=== PATIENT | female | born 1965 | race Caucasian/White ===

== ENCOUNTER 2024-08-29 15:01 | Inpatient (IN) | payer MEDICARE ==
[~2024-08-29] VITALS: Ht 172.7 cm; Wt 59.6 kg
--- NOTE | 2024-08-29 15:10 | NUR ---
Medication/allergy paperwork fiven to Yelena Varghese for reconcilliation.
[2024-08-29] MEDS ORDERED: PEPCID 20MG TAB20 MG PO (15:22)
[2024-08-29] MEDS ORDERED: DECADRON 4MG TAB4 MG PO (15:25)
[2024-08-29] MEDS ORDERED: PREDNISONE1 MG PO (15:26)
[2024-08-29] MEDS ORDERED: SYMBICORT1 AE3 IH (15:27)
[2024-08-29] MEDS ORDERED: SPIRIVA RE2.5 MCG/Ac IH (15:28)
[2024-08-29] MEDS ORDERED: NOVAPLUS L40 MG/0.4 SQ (15:29)
[2024-08-29] MEDS ORDERED: IPRATROPIUM BROM3 M1 IH ×2 (15:30→15:31)
--- NOTE | 2024-08-29 15:30 | NUR ---
PTS DUAGHTER AND DAUGHERS SIGNIFICANT OTHER AT BEDSIDE. ANITHA, JIG OPERATOR AT NOTIFIED. SW NOTIFIED ABOUT FAMILY WANTING INFO ON ADVANCED DIRECTIVES.
[2024-08-29] MEDS ORDERED: ONDANSENTRON 4MG/2ML IV (15:31)
--- NOTE | 2024-08-29 16:27 | NUR ---
Pt discussed DNR status with nurse Peg wishing to sign paperwork for DNR. workers' compensation claims supervisor Josefa, facilitates signing ove DNR form with with nurse witnessing after patient was able to teach back explaination of DNR. Dr Hernandez signs and is placed on chart
--- NOTE | 2024-08-29 16:33 | NUR ---
confirmed kitchen staff aware of patient, and to provide dinner.
--- NOTE | 2024-08-29 18:58 | NUR ---
report to FABIOLA Cheatham
[2024-08-29] MEDS ORDERED: Albuterol/Ipratropium 3 MG-0.5 MG/3 ML Neb Soln IH SCH (19:15)
[2024-08-29] MEDS ORDERED: Albuterol/Ipratropium 3 MG-0.5 MG/3 ML Neb Soln IH PRN (19:15)
[2024-08-29] MEDS ORDERED: Bisacodyl 5 MG TAB PO PRN (19:15)
[2024-08-29] MEDS ORDERED: Docusate Sodium 100 MG CAP PO PRN (19:15)
[2024-08-29] MEDS ORDERED: Polyethylene Glycol 3350 Powder 17 GM PACKET PO PRN (19:15)
[2024-08-29] MEDS ORDERED: Ibuprofen 200 MG TAB PO PRN (19:15)
[2024-08-29] MEDS ORDERED: Acetaminophen 325 MG TAB PO PRN (19:15)
[2024-08-29] MEDS ORDERED: STIOLTO RESPIMAT4 GM IH (19:18)
[2024-08-29 20:05] VITALS: BP 107/69
[2024-08-29] MEDS ORDERED: Budesonide Neb Soln 0.5 MG/2 ML AMP IH SCH (21:00)
[2024-08-30 06:06] LABS: HEMATOCRIT 39.7 % (37.0-47.0); HEMOGLOBIN 12.3 g/dL (12.5-16.0); LYMPH# 2.03 K/mm3 (1.50-4.00); MEAN CELL VOLUME 97 fl (78-100); MEAN CORPUSCULAR HEMOGLOBIN 30 pg (27-31); MEAN CORPUSCULAR HGB CONC 31 g/dL (33-37); MEAN PLATELET VOLUME 8.5 fl (7.4-10.4); MONO # 0.84 K/mm3 (0.20-0.80); NEU # 4.19 K/mm3 (1.40-6.50); PLATELET COUNT 235 K/mm3 (130-400); RED CELL DISTRIBUTION WIDTH 12.4 % (11.5-14.5); WHITE BLOOD COUNT 7.1 K/mm3 (4.8-10.8)
[2024-08-30 06:11] LABS: ALBUMIN 3.4 g/dL (3.4-4.8)
[2024-08-30 06:13] LABS: CALCIUM 8.8 mg/dL (8.3-10.5)
[2024-08-30 06:14] LABS: TOTAL PROTEIN 6.3 g/dL (6.2-8.1)
[2024-08-30 06:16] LABS: TOTAL BILIRUBIN 0.3 mg/dL (0.2-1.2)
[2024-08-30 07:34] VITALS: BP 91/65
[2024-08-30] MEDS ORDERED: predniSONE 1 MG TAB PO SCH (09:00)
[2024-08-30] MEDS ORDERED: Famotidine 20 MG TAB PO SCH (09:00)
[2024-08-30] MEDS ORDERED: Tiotropium 2.5 MCG Respimat MDI IH SCH (09:00)
[2024-08-30] MEDS ORDERED: predniSONE 20 MG TAB PO SCH (09:30)
[2024-08-30] MEDS ORDERED: Albuterol/Ipratropium 3 MG-0.5 MG/3 ML Neb Soln IH SCH (11:00)
--- NOTE | 2024-08-30 11:55 | NUR ---
[id number]- report recieved from Chaparrita HICKS 0715 pt resting in bed at this time with oxygen at 2L NC. pt does not have any complaints or pain at this time. assessment completed.
--- NOTE | 2024-08-30 11:57 | NUR ---
Pt daughter, Ruht called about bringing clothes. phone number [phone] left message
--- NOTE | 2024-08-30 16:20 | NUR ---
Pt has waffle chair seat applied to chair. bottom looked a little reddened while staff gave shower.
--- NOTE | 2024-08-30 17:39 | NUR ---
pt ambulated to bathroom without difficulty. pt reports that cushion under bottom of recliner feels better.
[2024-08-30 19:00] VITALS: BP 112/67
[2024-08-31 07:03] VITALS: BP 97/60
--- NOTE | 2024-08-31 09:30 | NUR ---
PT ALERT AND ORIETNED X4, PT RESTING IN CHAIR FOR ASSESSMENT AND MEDICATIONS. PT DENIES ANY PAIN AT THIS TIME. PT ASSESSED AND MEDICATIONS GIVEN WITHOUT COMPLICATION, PT COMPLETED BREATHING TREATMENT. NO FURTHER NEEDS EXPRESSED AT THSI TIME, CALL LIGHT IN REACH AND CHAIR ALARM ON
--- NOTE | 2024-08-31 16:48 | NUR ---
Pt up to BR w/ CGA w/ steady gait and 02 at 5 L/NC. Voids and returns to chair for dinner. Tolerates activity without complaints. 02 down to 2 L/NC.
[2024-08-31 19:00] VITALS: BP 98/66
--- NOTE | 2024-08-31 19:13 | NUR ---
REPORT TO RACHEL HICKS
--- NOTE | 2024-08-31 19:30 | NUR ---
Report received and care assumed. Pt resting in chair with no needs or concerns at this time. Oxygen in place at 2 L/min via nasal canula.
--- NOTE | 2024-08-31 23:56 | NUR ---
Pt resting in bed with oxygen in place at 2L/min via nasal canula. Call light in reach, bed alarm on.
--- NOTE | 2024-09-01 00:29 | NUR ---
Report given to Loyd Mcpherson RN and care transferred.
--- NOTE | 2024-09-01 06:41 | NUR ---
Patient up watching television at 0030. Denies pain and O2 at 2L via NC. RR at 16 when sleeping at hourly checks. Breathing regular and unlabored. Patient refused breathing treatment scheduled for this morning. She did not want to be woke for breathing treatments.
[2024-09-01 07:00] VITALS: BP 101/70
--- NOTE | 2024-09-01 07:03 | NUR ---
Report givent to FABIOLA Mcfadden.
--- NOTE | 2024-09-01 07:08 | NUR ---
REPORT FROM FRANCISCA HICKS
--- NOTE | 2024-09-01 13:30 | NUR ---
PT ALERT AND ORIETNED X4, PT RESTING IN CHAIR, DENIES ANY NEEDS AT THIS TIME. PT REPORTS SLEEPING WELL. MEDICATIONS GIVEN AND PT ASSESSED WITHOUT COMPLICATION. PT NOW RESTING IN CHAIR WITH CALL LIGHT IN REACH AND CHAIR ALARM ON
--- NOTE | 2024-09-01 15:54 | NUR ---
PT DENIES ANY NEEDS AT THIS TIME, RESTING IN BED WITH CALL LIGHT IN REACH
--- NOTE | 2024-09-01 19:00 | NUR ---
REPORT TO MAXX HICKS
[2024-09-01 19:30] VITALS: BP 97/52
[2024-09-02 08:24] VITALS: BP 105/72
--- NOTE | 2024-09-02 11:19 | NUR ---
PT ALERT AND ORIENTED X4, PT DENIES ANY NEEDS, PT ASSESSED AND MEDICATIONS GIVEN. PT REPORTS SLEEPING WELL. PT REQUESTS MEDICATION TO ASSIST IN BOWEL MOVEMENT SHE REPORTS SHE HAS BEEN STRAINING TO DO SO. PT NOW RESTING IN CHAIR WITH CALL LIGHT IN REACH AND CHAIR ALARM ON
--- NOTE | 2024-09-02 18:15 | NUR ---
PT RESTING IN CHAIR, NO NEEDS EXPRESSED
[2024-09-02 19:00] VITALS: BP 116/72
--- NOTE | 2024-09-02 19:14 | NUR ---
REPORT MAXX HICKS
[2024-09-03 07:00] VITALS: BP 117/84
--- NOTE | 2024-09-03 09:40 | NUR ---
PT ALERT AND ORIETNED, PT DENIES PAIN AT THIS TIME, PT ASSESSED AND MEDICATIONS GIVEN WITHOUT COMPLICATION. PT DENIES ANYU FURTHER NEEDS AT THIS TIME. PT NOW RESTING IN BED WITH CALL LIGHT IN REACH.
--- NOTE | 2024-09-03 12:00 | NUR ---
OT HENNY REPORTING THAT PT STATES SHE NEEDS AN ANXIETY MEDICATION PRIOR TO COMPLETING THERAPY, NEW MEDICATION ORDERED
[2024-09-03] MEDS ORDERED: hydrOXYzine HCl 10 MG TAB PO PRN (12:15)
--- NOTE | 2024-09-03 15:08 | NUR ---
SW met with patient as new admission to [facility] post acute stay at [facility] for pna. Patient reports that she lives at home with her daughter Ruth and grandchildren along with her son Ranjith Kirby" in [place], [place]. Patient reports that she is normally able to complete all of her ADL's and IADL's at home, but if she needed help, Ruth helps her. She denies any use of DME equipment at home to help ambulate, but does use home oxgen which is supplied through the hospital in [place]. She is unsure of who her PCP is and states that she normally just see's who is on that day. Her preferred phamracy is [facility] in [place]. She denies current home health use, but does state that she has utilized [facility] in the past. SW addressed patients barriers to working with therapy which she contributes to feeling "jittery" and "anxious". SW educated the patient on the importance of working with therapy and how refusing tx due to the above could impact her qualifying for SW. SW encouraged the patient to communicate with the therapy team if she wasn't feeling well, but strongly encourages the patient to participate. Patient verbalized her understanding.
--- NOTE | 2024-09-03 18:50 | NUR ---
Received report from Nick Valencia RN
[2024-09-03 19:41] VITALS: BP 112/75
--- NOTE | 2024-09-03 20:25 | NUR ---
Pt sitting in recliner watching TV. Pt denies pain when asked. Pt is aggreable to preform her nebulizer. No abnormal finding when preforming nursing assessment. After Pulmicort neb is completed pt request to go to bed. HS care preformed and pt then asssisted to bed. Bed alarms on for safety and call light in reach of pt.
[2024-09-04 07:00] VITALS: BP 114/76
--- NOTE | 2024-09-04 08:00 | NUR ---
PT ALERT AND ORIETNED X4, PT ASSISTED TO CHAIR FOR ASSESSMENT AND MEDICATIONS. PT EATING VERY LITTLE, PROVIDER ANITHA NOTIFIED OF DECREASED PT INTAKE. NO NEW ORDERS AT THIS TIME, PT RODRÍGUEZ IN PLACE DRAINING YELLOW CLEAR URINE. PT DENIES PAIN. MEDICATIONS GIVEN WHOLE IN APPLESAUCE. PT NOW RESTING IN CHAIR WITH CALL LIGHT IN REACH AND CHAIR ALARM ON. PT DENIES FURTHER NEEDS AT THIS TIME
--- NOTE | 2024-09-04 09:00 | NUR ---
PT ALERT AND ORIENTED X4, PT GIVEN MEDICATIONS BY SUN HICKS. PT TOOK ANXIETY MEDICATION TO ALLEVIATE ANXIETY IN RELATION TO COMPLETING THERAPY. PT ASSESSED, PT DENIES PAIN, NO FURTHER NEEDS EXPRESSED. PT RESTING IN CHAIR WITH CALL LIGHT IN REACH AND BED ALARM ON.
--- NOTE | 2024-09-04 12:49 | NUR ---
PT REPORTS SHE "DOES NOIT LIKE THAT PILL" REGARDS TO ANXIETY MEDICATION, REPORTING"I AM TRYING HARD TO STAY AWAKE" PROVIDER JENNIFER NOTIFIED
--- NOTE | 2024-09-04 18:57 | NUR ---
REPORT TO BOUCHRA HICKS
[2024-09-04 19:00] VITALS: BP 103/71
--- NOTE | 2024-09-04 19:50 | NUR ---
Pt sitting in recliner when nurse eneters room. pt denies any pain when asked. No abnormal findings with the nursing assessment. No needs expressed while nurse in room, encouraged pt to call if any needs arise. Call light in reach of pt.
--- NOTE | 2024-09-05 06:54 | NUR ---
Report given to Nick Valencia RN.
[2024-09-05 07:00] VITALS: BP 105/71
[2024-09-05 08:59] LABS: EOS # 0.03 K/mm3 (0.04-0.40); EOS % 0.4 % (1.0-5.0); HEMATOCRIT 43.2 % (37.0-47.0); HEMOGLOBIN 13.3 g/dL (12.5-16.0); LYMPH# 1.92 K/mm3 (1.50-4.00); MEAN CELL VOLUME 99 fl (78-100); MEAN CORPUSCULAR HEMOGLOBIN 31 pg (27-31); MEAN CORPUSCULAR HGB CONC 31 g/dL (33-37); MEAN PLATELET VOLUME 8.4 fl (7.4-10.4); MONO # 0.59 K/mm3 (0.20-0.80); NEU # 4.39 K/mm3 (1.40-6.50); PLATELET COUNT 255 K/mm3 (130-400); RED BLOOD COUNT 4.35 M/mm3 (4.10-5.30); RED CELL DISTRIBUTION WIDTH 12.6 % (11.5-14.5)
[2024-09-05 09:05] LABS: ALBUMIN 3.7 g/dL (3.4-4.8)
[2024-09-05 09:06] LABS: CALCIUM 9.4 mg/dL (8.3-10.5)
[2024-09-05 09:07] LABS: TOTAL PROTEIN 6.7 g/dL (6.2-8.1)
[2024-09-05 09:09] LABS: TOTAL BILIRUBIN 0.5 mg/dL (0.2-1.2)
--- NOTE | 2024-09-05 09:45 | NUR ---
PT ALERT AND ORIETNED X4, PT RESTING IN CHAIR WITH CALL LIGHT IN REACH. PT ASSESSED AND MEDICATIONS GIVEN BY SUN HICKS. PT REPORTS FEELING WELL TODAY, NO ANXIETY REPORTED. PT NOW RESTING IN CHAIR WITH CALL LIGHT IN REACH AND DENIES FURHTER NEEDS
--- NOTE | 2024-09-05 10:46 | NUR ---
SWING BED TEAM ARCELIA PT REPORTS SHE IS IMPROVING BUT STILL BELIEVE SHE NEEDS MORE TIME THERAPY REPORTS RESASSESS NEXT WEEK DUE TO STRENGTHENING ANITHA SUPERVISOR FURNACE ROOM REPORTS PT IS AT BASELINE MEDICALLY IN REGARDS TO OXYGEN AND MEDICATIONS WE WILL CONTINUE TO WORK WITH THERAPY
--- NOTE | 2024-09-05 17:35 | NUR ---
PT VOMITTED, PT STATES "I THINK ITS HEARTBURN", PT GIVEN ZOFRAN FOR NAUSEA
[2024-09-05 19:53] VITALS: BP 90/61
--- NOTE | 2024-09-06 01:14 | NUR ---
Patient sitting up in recliner alert and oriented x 4. Denies pain or needs at this time. HS meds given by Yelena HICKS.
[2024-09-06 07:27] VITALS: BP 99/68
--- NOTE | 2024-09-06 08:15 | NUR ---
Report to Wave RN
--- NOTE | 2024-09-06 08:32 | NUR ---
Pt sitting up in chair, finished breakfast. Reports ARIZMENDI pain but otherwise no complaints. Swallows AM meds without difficulty. Inhaled meds given per orders. Lungs all lobes with minimal air movement and fine crackles to upper lobes bilaterally. Pt denies feeling SOB with ambulation. Remains on 2L O2 via NC.
[2024-09-06 18:59] VITALS: BP 105/70
--- NOTE | 2024-09-07 06:33 | NUR ---
last time patient up to the bathroom was 0200, has been resting with eyes closed.
--- NOTE | 2024-09-07 07:00 | NUR ---
REPORT RECEIVED FROM FABIOLA NGUYỄN
[2024-09-07 07:20] VITALS: BP 110/60
--- NOTE | 2024-09-07 07:50 | NUR ---
PATIENT AWAKE, LYING IN BED. [facility] ASS[facility] TO BATHROOM [facility]. DENIES OTHER NEEDS OR COMPLAINTS AT THIS TIME. CHAIR ALARM ON, CALL LIGHT WITHIN REACH.
[2024-09-07 10:15] VITALS: BP 107/68
--- NOTE | 2024-09-07 11:51 | NUR ---
Pt daughter brought new clothing from [facility]. Removed tags, double bagged, delivered to laundry.
--- NOTE | 2024-09-07 18:52 | NUR ---
REPORT GIVEN TO FABIOLA NGUYỄN
[2024-09-07 19:00] VITALS: BP 115/78
--- NOTE | 2024-09-07 20:00 | NUR ---
Patient sitting up in recliner. Alert and oriented x 4. Denies pain. O2 on 2lpnc. RT treatment reviewed and given.
--- NOTE | 2024-09-08 05:50 | NUR ---
Patient has been resting with eyes closed. Up once during the night to void.
--- NOTE | 2024-09-08 06:23 | NUR ---
Patient reports she slept well this noc.
[2024-09-08 07:00] VITALS: BP 113/75
--- NOTE | 2024-09-08 08:39 | NUR ---
Resting quietly in chair. Ate 100% of breakfast. Reports she slept well last night. Denies pain or discomfort. Swallowed pills whole with water. Chair in locked position. Call light within reach.
--- NOTE | 2024-09-08 11:22 | NUR ---
Luli reports ringing in her ears. Reports past hearing screening with no hearing loss or need for ARIZMENDI. BP checked at this time. BP 97/67, P97. Findings reports to Anna Arredondo MD.
[2024-09-08 11:24] VITALS: BP 97/67
[2024-09-08 19:00] VITALS: BP 104/70
--- NOTE | 2024-09-08 20:00 | NUR ---
Patient sitting up in recliner. Alert and oriented x 4. Denies pain. Reports had a good day and to have visitors tomorrow. HS meds reviewed and given.
--- NOTE | 2024-09-09 04:50 | NUR ---
Patient has been resting with eyes closed.
[2024-09-09 07:00] VITALS: BP 110/71
[2024-09-09] MEDS ORDERED: Albuterol/Ipratropium 3 MG-0.5 MG/3 ML Neb Soln IH SCH (13:00)
[2024-09-09 19:00] VITALS: BP 102/68
--- NOTE | 2024-09-09 20:45 | NUR ---
Patient reports she enjoyed visiting with her 9 year old grandson taj. Alert and oriented x 4. Denies pain or shortness of breath. Sitting up in recliner and meds reviewed and given.
--- NOTE | 2024-09-10 05:41 | NUR ---
Patient incontinent of urine and up to the bathroom and changes self. Declines RT treatment. States she slept well.
[2024-09-10 07:18] VITALS: BP 109/72
--- NOTE | 2024-09-10 10:44 | NUR ---
Pt setting in chair with call light within reach. She reports she has not fallen in the last 3 months . She is currently on 2 Liters N\C and increases to 5 liters with ambulation. She did complain of headache and requested tylenol for headache which was given. She does have dark purple eccymosis noted to bilateral arms. She does not have IV at present. She does have exertional SOB which is normal for her. She does use 02 at 2 Liters at home and increases with exertion.
--- NOTE | 2024-09-10 17:35 | NUR ---
Pt offered ibuprofen but declined. When asked if Tylenol helped she said, "yes" and declined Ibuprofen. She did therapy this afternoon and states. "This wears me out."
[2024-09-10 19:00] VITALS: BP 104/69; BP_SYST 69
--- NOTE | 2024-09-10 19:20 | NUR ---
Report received from Mable HICKS. Patient sitting up in recliner watching TV. Oxygen in place at 2L/NC. Denies pain. States SOA with exertion but at her baseline. Denies problems with B&B. Up with SBA and no device, gait steady. Assessment completed. Denies questions wants or needs. Bed alarm on. Call light in reach. Will give Duoneb early as patient does not want to be awaken at 2300 for nebulizer tx.
--- NOTE | 2024-09-11 07:03 | NUR ---
Report to Bogdan HICKS.
[2024-09-11 07:30] VITALS: BP 115/73
--- NOTE | 2024-09-11 09:20 | NUR ---
PT ALERT AND ORIENTED X4, PT WORKING WITH THERAPY UPON ENTRY. PT ASSESSED AND MEDICATIONS GIVEN WITHOUT COMPLICATION. PT AMBULATING WITH STANDBY ASSISTANCE/NO WALKER NEEDED. PT DENIES ANY FURTHER NEEDS AT THIS TIME.
[2024-09-11 19:00] VITALS: BP 105/69
--- NOTE | 2024-09-11 19:13 | NUR ---
Report received from Mara HICKS. Patient sitting up in recliner watching TV. A/O x4. Oxygen in place at 2L/NC. Denies pain, SOA or cough. Assessment completed. Calls for assist PRN. Chair alarm on. Call light in reach.
--- NOTE | 2024-09-12 00:50 | NUR ---
Rests in bed with oxygen in place at 2L/NC. POTATO BUCKER's report patient refusing to wear SCD's.
--- NOTE | 2024-09-12 05:04 | NUR ---
Sleeping, patient has stated she does not want to be awaken for nebulizer tx. Not given at this time.
--- NOTE | 2024-09-12 07:09 | NUR ---
Report to Marla HICKS.
[2024-09-12 07:33] VITALS: BP 112/73
[2024-09-12 08:17] LABS: BASO # 0.01 K/mm3 (0.02-0.10); EOS # 0.05 K/mm3 (0.04-0.40); EOS % 0.9 % (1.0-5.0); HEMATOCRIT 36.2 % (37.0-47.0); LYMPH# 0.65 K/mm3 (1.50-4.00); MEAN CELL VOLUME 101 fl (78-100); MEAN CORPUSCULAR HEMOGLOBIN 31 pg (27-31); MEAN CORPUSCULAR HGB CONC 30 g/dL (33-37); MEAN PLATELET VOLUME 8.4 fl (7.4-10.4); MONO # 0.47 K/mm3 (0.20-0.80); NEU # 4.64 K/mm3 (1.40-6.50); PLATELET COUNT 173 K/mm3 (130-400); RED BLOOD COUNT 3.59 M/mm3 (4.10-5.30); RED CELL DISTRIBUTION WIDTH 13.4 % (11.5-14.5); WHITE BLOOD COUNT 5.8 K/mm3 (4.8-10.8)
[2024-09-12 08:20] LABS: ALBUMIN 3.5 g/dL (3.4-4.8)
[2024-09-12 08:22] LABS: CALCIUM 9.5 mg/dL (8.3-10.5)
[2024-09-12 08:23] LABS: TOTAL PROTEIN 6.6 g/dL (6.2-8.1)
[2024-09-12 08:25] LABS: TOTAL BILIRUBIN 0.3 mg/dL (0.2-1.2)
--- NOTE | 2024-09-12 08:29 | NUR ---
Pt sitting up in recliner. O2 at 2L via NC. Lungs CTA, dim/absent in bases bilaterally. Denies pain. Reports feeling nervous about [facility]B meeting this AM. Feels that she is ready to return home. Denies any needs for return to home environment.
--- NOTE | 2024-09-12 12:16 | NUR ---
Patient scheduled to discharge home on Thursday 09/14. She has declined home health services to return home with. NOMNC provided to patient along with education. Patient verbalizes her understanding and agreement. Signed copy place in chart and original provided to the patient. PCP fu scheduled for 09/20 @1500. Discharge plan: Home
[2024-09-12 19:00] VITALS: BP 100/63
--- NOTE | 2024-09-12 19:15 | NUR ---
Report received from Marla HICKS. Patient sitting up in recliner playing game on phone. A/O x4. Denies pain, SOA, cough. Oxygen in place at 2L/NC. Increased to 5L with ambulation. Up ad-enmanuel in room. Discharging home on Tuesday. Denies questions, wants or needs at this time.
--- NOTE | 2024-09-13 00:55 | NUR ---
Rests in bed with eyes closed. Respirations even and non-labored. Oxygen in place at 2L/NC. Up ad-enmanuel in room.
--- NOTE | 2024-09-13 05:42 | NUR ---
Rested well through the night. Up ad-enmanuel in room. Refused early AM nebulizer tx as patient reports she does not want to be awaken for the tx.
--- NOTE | 2024-09-13 07:01 | NUR ---
Report to Micah/Marla HICKS's.
[2024-09-13 07:16] VITALS: BP 126/84
--- NOTE | 2024-09-13 08:01 | NUR ---
PATIENT UP IN CHAIR AND ASKING "WHEN NEXT BREATHING TREATMENT" IS DUE... PATIENT C/O ARIZMENDI AND ASKING FOR TYLENOL. WILL MEDICATE.
--- NOTE | 2024-09-13 08:08 | NUR ---
PATINT C/O LEFT TEMPORAL HEAD ACHE...MEDICATED WITH TYLENOL.
--- NOTE | 2024-09-13 18:43 | NUR ---
REPORT TO ALIN BHAGAT
[2024-09-13 19:00] VITALS: BP 102/65
--- NOTE | 2024-09-13 19:25 | NUR ---
Report received from Micah HICKS. Patient sitting up in chair with oxygen in place at 2L/NC. Requests increased to 3 and done at this time. Denies pain. Assessment completed. Up ad-enmanuel in room. Noted GARCIA. Denies questions, wants or needs at this time.
--- NOTE | 2024-09-14 05:15 | NUR ---
No verbalizations of wants or needs in the night. Up ad-enmanuel in room. Refuses AM nebulizer tx. States she does not want to be awaken for tx.
--- NOTE | 2024-09-14 06:46 | NUR ---
Report to Micah HICKS.
[2024-09-14 07:00] VITALS: BP 130/81
--- NOTE | 2024-09-14 07:58 | NUR ---
PATIENT TEACHING DONE ON PLAN FOR PROBABLE DC TODAY HOME WITH DAUGHTER. O2 PER NC AND LITERS FLOW MANAGED PER PATIENT. POST BREATHING TREATMENT PATIENT REQUESTS 02 3L PER NC.
--- NOTE | 2024-09-14 08:39 | NUR ---
C/O HEADACHE LEFT TEMPORAL AREA...RATES A TWO...MEDICATED REQUESTED. UP IN CHAIR AND WITHOUT FURTHER NEEDS OR C/O.
[2024-09-14] MEDS ORDERED: STIOLTO RESPIMAT4 GM IH (10:37)
[2024-09-14] MEDS ORDERED: IPRATROPIUM BROM3 M1 IH (10:37)
[2024-09-14] MEDS ORDERED: RT ALBUTEROL CC18 GM IH (10:37)
--- NOTE | 2024-09-14 10:44 | NUR ---
DEXTER received coupons from N for Ensure. Provided to the patient.
--- NOTE | 2024-09-14 11:27 | NUR ---
REQUESTS TYLENOL STATING THAT ARIZMENDI "NEVER TOTALLY" WENT AWAY.... TAKING BREATHING TREATMENT. PATIENT TEACHING DONE ON DISCHARGE ORDER AND WILL BEGIN PAPERWORK.
--- NOTE | 2024-09-14 13:47 | NUR ---
DISCHARGE PAPERWORK REVIEWED AND SIGNED BY PATIENT....READY FOR DC HOME.
--- NOTE | 2024-09-14 14:58 | NUR ---
DAUGHTER AND SON-IN-LAW FOR DISMISSAL AND TRANSPORT HOME. DAUGHTER HAS BROUGHT HOME O2 TANK AND PATIENT HAS SET O2 PER NC AT 2L CONTINOUS. PATIENT/FAMILY WITHOUT FURTHER QUESTIONS.
== END 2024-09-14 14:58 | disposition home or self-care (01) | DRG 189 ==
LOC: MED/SURG 15:01
PROVIDERS: Family Medicine
DX: J96.02 Acute respiratory failure with hypercapnia (principal); J44.1 Chronic obstructive pulmonary disease with (acute) exacerbation; J96.01 Acute respiratory failure with hypoxia; J10.1 Influenza due to other identified influenza virus with other respiratory manifestations; R53.81 Other malaise
CPT/HCPCS: J1650; J7512